=== PATIENT | female | born 1990 | race Two or more races ===

== ENCOUNTER 2018-05-05 05:34 | Day surgery (SDC) | payer OTHER ==
[2018-05-05] MEDS ORDERED: PROPOFOL 100 ML ONE (06:26)
[2018-05-05] MEDS ORDERED: MIDAZOLAM HCL 2 MG/2ML VIAL ONE (06:27)
[2018-05-05] MEDS ORDERED: FENTANYL PF 250MCG/5ML AMPUL ONE (06:27)
[2018-05-05] MEDS ORDERED: ROCURONIUM BROMIDE 50 MG/5 ML ONE (06:28)
[2018-05-05] MEDS ORDERED: ACETAMINOPHEN 325 MG TABLET ONE (06:38)
[2018-05-05] MEDS ORDERED: CELECOXIB 100 MG CAPSULE ONE (06:38)
[2018-05-05] MEDS ORDERED: oxyCODONE HCL SR 20MG TAB.SR.12H PO ONE (06:38)
[2018-05-05] MEDS ORDERED: KETOROLAC TROMETHAMINE INJ 30 MG/ML VIAL ONE (06:40)
[2018-05-05] MEDS ORDERED: LIDOCAINE HCL/PF 1% 30 ML SDV ONE (06:59)
[2018-05-05] MEDS ORDERED: BUPIVACAINE MPF 0.5% W/EPI INJ 30 ML VIAL ONE (06:59)
[2018-05-05] MEDS ORDERED: methylPREDNISolone ACETATE 80 MG/ML VIAL ONE (07:00)
[2018-05-05] MEDS ORDERED: methylPREDNISolone ACETATE 40 MG/ML VIAL ONE (07:00)
[2018-05-05] MEDS ORDERED: BACITRACIN 50000 UNITS/VIAL ONE (07:01)
[2018-05-05] MEDS ORDERED: HEMOSTATIC MATRIX 10 ML 1 EACH PAD MC ONE (07:01)
[2018-05-05] MEDS ORDERED: METHYLENE BLUE 10 ML VIAL ONE (07:02)
[2018-05-05] MEDS ORDERED: SCOPOLAMINE HBR 1 EA PATCH.TD72 TD ONE (07:40)
[2018-05-05] MEDS ORDERED: HYDROMORPHONE 1 MG/1 ML DISP.SYRIN ONE (09:49)
[2018-05-05] MEDS ORDERED: ONDANSETRON HCL/PF 4 MG/2 ML VIAL ONE (10:34)
[2018-05-05] MEDS ORDERED: METOCLOPRAMIDE HCL 10 MG/2 ML VIAL ONE (10:59)
[2018-05-05] MEDS ORDERED: HYDROCODONE/APAP 5/325MG 1 EACH TABLET PO PRN (11:30)
== END 2018-05-05 11:45 | disposition home or self-care (01) ==
LOC: DS 05:34
PROVIDERS: ATTEND Specialist
DX: M51.16 Intervertebral disc disorders with radiculopathy, lumbar region (principal)
CPT/HCPCS: 36415; 62322; 63030; 72020; 84703; 86850; 88304; 88311; A6209; A6402 ×2; J0690; J1030; J1040; J1100; J1170; J1885; J2250; J2405; J2704; J2765; J3010; J3490 ×3; Q9968